=== PATIENT | male | born 1970 | race Asian ===

== ENCOUNTER 2016-06-09 09:12 | Emergency (ER) | payer MEDICARE, OTHER ==
[~2016-06-09] VITALS: Wt 68.9 kg
[~2016-06-09 09:12] MED LIST: NASO17; RISP3TAB25; [UNRECOGNIZED DRUG - CODE]; [UNRECOGNIZED DRUG - OTHER]
[2016-06-09] MEDS ORDERED: CEPH500C PO (10:23)
[2016-06-09] MEDS ORDERED: HC30CR25 TOP (10:23)
[2016-06-09] MEDS ORDERED: CLOT24CR4 TOP (10:23)
--- NOTE | 2016-06-09 10:26 | ERD ---
ER Documentation Chief Complaint Date/Time DATE: 06/09/16 TIME: 10:24 Chief Complaint rash on bottom for the past day. no sob or stridor noted. HPI This 46-year-old male presents with his terminal gauger for rash noticed on his sacral area today. Patient is developmentally delayed and hearing impaired. There is been no history of fevers, trauma, bleeding or discharge. ROS All systems reviewed and are negative except as per history of present illness. Medications Home Meds Active Scripts Hydrocortisone* Topical (Hydrocortisone* Topical) 2.5%-28.3 Gm Cream..g., 1 APPLIC TOP BID for 7 Days, #1 TUB Prov:CHAN ARCE MD 06/09/16 Clotrimazole* (Lotrimin* AF) 1% - 24 Gm Cream.gm., 1 APPLIC TOP BID for 10 Days , TUB Prov:CHAN ARCE MD 06/09/16 Cephalexin* (Cephalexin*) 500 Mg Capsule, 500 MG PO Q6 for 7 Days, #28 CAP Prov:CHAN ARCE MD 06/09/16 Reported Medications [[facility]] No Conflict Check 01/03/10 Mometasone Furoate* (Nasonex*) 17 Gm [place].pump 01/03/10 Fluocinolone Acetonide (Synalar) 60 Gm Cream.gm. 01/03/10 Risperidone* (Risperdal*) 3 Mg Tablet 01/03/10 Allergies Allergies: Coded Allergies: No Known Allergy (Unverified , 06/09/16) PMhx/Soc Medical and Surgical Hx: pt denies Surgical Hx History of Surgery: No Anesthesia Reaction: No Hx Respiratory Disorders: No Hx Cardiac Disorders: No Hx Psychiatric Problems: No Hx Miscellaneous Medical Probl: No Hx Alcohol Use: No Hx Substance Use: No Hx Tobacco Use: No Smoking Status: Current every day smoker Physical Exam Vitals Vital Signs Date Time Temp Pulse Resp B/P Pulse Ox O2 Delivery O2 Flow Rate FiO2 06/09/16 09:14 98.8 94 20 119/73 98 Physical Exam Const: [] Alert, [id number] per Head: Atraumatic Eyes: Normal Conjunctiva ENT: Normal External Ears, Nose and Mouth. Neck: Full range of motion..~ No meningismus. Resp: Clear to auscultation bilaterally Cardio: Regular rate and rhythm, no murmurs Abd: Soft, non tender, non distended. Normal bowel sounds Skin: No petechiae or rashes. There is an area of irritation excoriations in the sacral area. There is a 0.5 cm area of ulceration without erythema or discharge or fluctuance. It is through the epidermis but not to the dermis. Back: No midline or flank tenderness Ext: No cyanosis, or edema Neur: Awake and alert Psych: Normal Mood and Affect Procedures/MDM Patient has signs and symptoms of a dermatitis from a small ulcer. Facilities Flight Check Pilot denies that the patient is bedridden or wheelchair or has any history of pressure to that area. Given that it may be an isolated time of friction or irritation and area of moisture he will be treated empirically with Lotrimin hydrocortisone Keflex for possible secondary infection. Patient and terminal gauger advised to have wound check in 3-5 days with primary doctor return sooner for fevers, redness, new or worsening symptoms. There is no evidence to suggest osteomyelitis or penetration to the superficial layers of the skin. There is no evidence of significant cellulitis or sepsis. The patient was stable with no new complaints during the ER course. Clinically, there is no current evidence to suggest meningitis, sepsis, acute abdomen, pneumonia, acute coronary syndrome, pulmonary embolism, or any other emergent condition appearing to require further evaluation or hospitalization. The patient should certainly return for any new or worsening symptoms per the aftercare instructions. They should otherwise follow-up with her primary care doctor for reevaluation this week. Departure Diagnosis: Primary Impression: Decubitus ulcer limited to breakdown of skin (stage 2) Additional Impression: Rash Condition: Stable Patient Instructions: Decubitus Ulcer, Dermatitis, Non-Specific Additional Instructions: Rash appears to be due to friction or pressure. Recommend recheck 4-5 days with primary doctor. Recheck sooner for worsening redness, fevers, new symptoms. Keep wound covered. CHAN ARCE MD Jun 09, 2016 10:26
== END 2016-06-09 10:50 | disposition home or self-care (01) ==
LOC: FTE 09:12
DX: L89.152 Pressure ulcer of sacral region, stage 2 (principal); F17.210 Nicotine dependence, cigarettes, uncomplicated
CPT/HCPCS: 99283